=== PATIENT | male | born 1990 | race Two or more races ===

== ENCOUNTER 2021-04-02 21:45 | Emergency (ER) | payer SELFPAY ==
[~2021-04-02] VITALS: Ht 165.1 cm; Wt 70.3 kg
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
[2021-04-02] MEDS ORDERED: TDAP [DIPH/PERTUSSIS/TET] 0.5 ML VIAL IM ONE ×2 (22:30→22:39)
[2021-04-02] MEDS ORDERED: IV NS 0.9% 1,000 ML BAG IV ONE (22:30)
[2021-04-02] MEDS ORDERED: ONDANSETRON HCL/PF 4 MG/2 ML VIAL IVP ONE (22:30)
[2021-04-02] MEDS ORDERED: HYDROMORPHONE INJ 2 MG/ML DISP.SYRIN IV ONE (22:30)
[2021-04-02] MEDS ORDERED: HYDROMORPHONE 1 MG/1 ML DISP.SYRIN ONE (22:35)
[2021-04-02] MEDS ORDERED: ONDANSETRON HCL/PF 4 MG/2 ML VIAL ONE (22:35)
[2021-04-02 22:43] LABS: BASOPHILS # (AUTO) 0.1 K/uL (0.0-0.2); BASOPHILS % (AUTO) 0.4 % (0.0-2.0); EOSINOPHILS % (AUTO) 0.6 % (0.0-6.0); HEMATOCRIT 44 % (39-51); HEMOGLOBIN 14.4 g/dL (13.5-17.5); LYMPHOCYTES # (AUTO) 1.6 K/uL (0.8-4.8); LYMPHOCYTES % (AUTO) 11.1 % (20.0-44.0); MEAN CORPUSCULAR HGB CONC 33 g/dl (31.0-36.0); MEAN CORPUSCULAR VOLUME 90 fL (80-96); MONOCYTES # (AUTO) 0.9 K/uL (0.1-1.30); MONOCYTES % (AUTO) 6.5 % (2.0-12.0); NEUTROPHILS # (AUTO) 11.8 K/uL (1.8-8.9); NEUTROPHILS % (AUTO) 81.4 % (43.0-81.0); PLATELET COUNT (AUTO) 297 K/uL (150-450); RED BLOOD CELL COUNT(AUTO) 4.87 MIL/uL (4.5-6.0); WHITE BLOOD COUNT (AUTO) 14.5 K/uL (4.3-11.0)
--- NOTE | 2021-04-02 22:49 | NUR ---
[facility] CALLED PER DR PAREDES. PER LEONIDAS PATIENT DOES NOT REQUIRE TRANSFER. RECOMMENDS 2 HRS OBSERVATION
[2021-04-02 22:58] LABS: ALBUMIN 4.4 g/dL (3.4-5.0); BILIRUBIN,DIRECT 0.1 mg/dL (0.0-0.2); BILIRUBIN,TOTAL 0.3 mg/dL (0.2-1.0); CALCIUM, SERUM 9.2 mg/dL (8.5-10.1); POTASSIUM 3.5 mmol/L (3.5-5.1); TOTAL PROTEIN, SERUM 8.5 g/dL (6.4-8.2)
[2021-04-02] MEDS ORDERED: SILVER SULFADIAZINE CREAM 25 GM TUBE ONE (23:06)
[2021-04-02] MEDS ORDERED: SILVER SULFADIAZINE CREAM 25 GM TUBE TP ONE (23:30)
--- NOTE | 2021-04-02 23:34 | NUR ---
SILVADENE CREAM APPLIED TO NECK. SILVADENE DRESSING PPLIED TO BILATERAL FOREARMS
[2021-04-03] MEDS ORDERED: HYDR-4209 PO (01:04)
[2021-04-03] MEDS ORDERED: SILV20CR13 TP (01:04)
[2021-04-03 01:24] VITALS: BP 133/80
--- NOTE | 2021-04-03 01:24 | NUR ---
Patient discharged to home in stable condition. Written and verbal after care instructions given. Patient verbalizes understanding of instruction. RX given
== END 2021-04-03 01:48 | disposition home or self-care (01) ==
LOC: ER 21:45
DX: T20.10XA Burn of first degree of head, face, and neck, unspecified site, initial encounter (principal); T20.17XA Burn of first degree of neck, initial encounter; T22.112A Burn of first degree of left forearm, initial encounter; T22.111A Burn of first degree of right forearm, initial encounter; W40.1XXA Explosion of explosive gases, initial encounter; Y92.039 Unspecified place in apartment as the place of occurrence of the external cause; Z20.822 Contact with and (suspected) exposure to COVID-19
CPT/HCPCS: 16025; 36415; 80048; 80076; 85025; 85730; 87426; 90471; 90715; 93005; 96361; 96374; 96375; 99284; C9803; J1170; J2405; J7030